=== PATIENT | female | born 1980 | race Caucasian/White ===

== ENCOUNTER → 2016-11-21 | Outpatient (CLI) | payer OTHER | LOC: HPND 11:14 | PROVIDERS: ATTEND Obstetrics & Gynecology | DX: O09.522 Supervision of elderly multigravida, second trimester (principal); O28.3 Abnormal ultrasonic finding on antenatal screening of mother; O35.1XX0 Maternal care for (suspected) chromosomal abnormality in fetus, not applicable or unspecified; O35.8XX0 Maternal care for other (suspected) fetal abnormality and damage, not applicable or unspecified; Z3A.19 19 weeks gestation of pregnancy | CPT/HCPCS: 76811 ==

== ENCOUNTER 2017-02-08 16:57 | Emergency (ER) | payer OTHER ==
[~2017-02-08] VITALS: Ht 162.6 cm; Wt 102.1 kg
--- NOTE | 2017-02-08 18:07 | MB ---
cc: ORA COX MD DATE OF CONSULTATION 02/08/2017 at 5:40 p.m. LABOR AND DELIVERY CONSULTATION HISTORY The patient is a 36-year-old white female para 2-1-1-3 with EDC of 04/14/17. She was in the bathroom with her youngest child and suffered a fall, landed on both knees. Her left side hit the but and her right arm hit the tub. She had no abdominal pain, no bleeding. No discharge. No change in movement. She called me around 3:30 right about the time it happened, was advised to come in for monitoring. PHYSICAL EXAMINATION VITAL SIGNS: Her vital signs were stable. heart tracing is normal. DIRECTED EXAMINATION: The abdomen is gravid, nontender. Her cervix was long, thick and closed. EXTREMITIES: The right forearm has a mild bruise with full range of motion. Both knees show a full range of motion. No apparent injury. PLAN She will be discharged home after 1 hour of stable monitoring. She may use ice packs to her abrasion. Has had tetanus shot. Use Tylenol for pain relief. Should she have leakage of fluid, bleeding, decreased movement come back for monitoring. Ora Cox MD JAW/EO /5:44 PM /5:50 PM
== END 2017-02-08 18:27 | disposition home or self-care (01) ==
LOC: HOBED 16:57
DX: S50.11XA Contusion of right forearm, initial encounter (principal); W18.00XA Striking against unspecified object with subsequent fall, initial encounter
CPT/HCPCS: 99283

== ENCOUNTER → 2017-02-13 | Outpatient (CLI) | payer OTHER | LOC: HPND 10:13 | PROVIDERS: ATTEND Obstetrics & Gynecology | DX: O09.522 Supervision of elderly multigravida, second trimester (principal); O99.282 Endocrine, nutritional and metabolic diseases complicating pregnancy, second trimester | CPT/HCPCS: 76816 ==

== ENCOUNTER → 2017-03-25 | Outpatient (CLI) | payer OTHER | LOC: HPND 10:14 | PROVIDERS: ATTEND Obstetrics & Gynecology | DX: O09.523 Supervision of elderly multigravida, third trimester (principal); O99.283 Endocrine, nutritional and metabolic diseases complicating pregnancy, third trimester | CPT/HCPCS: 76816 ==

== ENCOUNTER 2017-04-08 15:53 | Emergency (ER) | payer OTHER ==
--- NOTE | 2017-04-08 16:44 | PD ---
HPI Chief Complaint Patient complains of a gush of fluid per vagina today after lifting her child in the car seat Date Seen: Apr 08, 2017 Time Seen: 16:30 Travel History International Travel<30 Days: No Contact w/Intl Traveler<30Days: No Known Affected Area: No History of Present Illness HPI This patient is a 37-year-old white female A1 is a patient of Dr. wakefield presents planning of leakage of fluid per vagina today. Patient states she was getting her child and out of the car seat in the current that she had a big gush of fluid per vagina. After that she went in the house change closed and Dry underwear and clothes on and those clothes did not get wet; after that though she states that she's can still consistent feeling a small dripping small amount of leakage still. Denies vaginal bleeding, baby is active, heart rate tracing is reactive, there are no contractions. Her amnio sure is negative 2 here on OB ED Weeks Gestation: 39 Para: 3 : 5 Last Menstrual Period: Apr 08, 2017 Miscarriage: 1 History Past Medical History Narrative Medical hypothyroidism is on Synthroid Obstetric History Obstetric History 3 vaginal deliveries; one early miscarriage Social History Alcohol Use: No Tobacco Use: No Substance Abuse: No Allergies-Medications (Allergen,Severity, Reaction): Coded Allergies: Penicillins (Verified Allergy, Severe, hives, 02/08/17) Sulfa (Sulfonamide Antibiotics) (Verified Allergy, Severe, hives, 02/08/17) ibuprofen (Verified Allergy, Severe, swelling, 02/08/17) Review of Systems General / Constitutional: No: Fever, Weight Gain, Chills, Other Eyes: No: Diploplia, Blurred Vision, Visual changes, Pain, Photophobia HENT: No: Headaches, Vertigo, Lightheadedness Cardiovascular: No: Irregular Rhythm, Chest Pain or Discomfort, Palpitations, Tachycardia, Syncope, Varicosities, Edema, Cyanosis Respiratory: No: Cough, Short of Breath, Other Gastrointestinal: No: Nausea, Vomiting, Diarrhea Genitourinary: No: Decreased Urinary Output, Oliguria Musculoskeletal: No: Limited ROM, Weakness, Cramping, Edema, Pain Skin: No Rash, No Itching, No Dryness, No Lumps, No Change in Pigmentation, No Change in Nails, No Alopecia, No Lesions Neurologic: No: Weakness, Dizziness, Syncope, Focal Abnormalities, Coordination Problem, Headache, Slurred Speech, Seizures Psychiatric: No: Depression, Suicidal Ideations, Homicidal Ideation Endocrine: No: Heat Intolerance, Cold Intolerance, Polydipsia, Polyuria, Other Physical Exam Narrative GENERAL: Well-nourished, well-developed patient. SKIN: Warm and dry. HEAD: Normocephalic and atraumatic. EYES: No scleral icterus. No injection or drainage. ENT: No nasal drainage noted. Mucous membranes pink. Airway patent. NECK: Supple, trachea midline. No JVD. CARDIOVASCULAR: Regular rate and rhythm without murmurs, gallops, or rubs. RESPIRATORY: Breath sounds equal bilaterally. No accessory muscle use. BREASTS: Bilateral exam showed no masses , no retractions, no nipple discharge. ABDOMEN/GI: Abdomen soft, non-tender, bowel sounds present, no rebound, no guarding Gravid to [39-] weeks size Fundal Height: [39-] GENITOURINARY: External Genitalia: intact and normal in appearance Amnio sure repeated and was negative, the re is no obvious leakage of fluid per vagina or near the labia or vulva. Cervix: [Posterior-] Speculum exam done--no leakage of fluid through the cervix no pooling in the vagina there is a moderate amount of yellow discharge at the cervical os. Dilatation: -Closed to fingertip] Effacement: [-] Thick Station: [-3] Presentation: [vtx-] Membranes: [intact amnio sure negative 2 speculum exam negative for fluid] Uterine Contractions: [-] Occasional FHT's: Category: [-1] Baseline: [-133] Reactive: [yes-] Variability: [-mod] Decels: [0-] EXTREMITIES: No cyanosis or edema. BACK: Nontender without obvious deformity. No CVA tenderness. NEUROLOGICAL: Awake and alert. Motor and sensory grossly within normal limits. Five out of 5 muscle strength in all muscle groups. Normal speech. Data Data Labs Amnio sure negative 2 MDM Interpretation(s) Patient is 37-year-old white female at 39 weeks presents of loss of fluid today. She noticed a gush of fluid which try to get her child car in the midline car seat. Since that time she changed clothes and put on dry clothes and they did not get significantly wet after that. Amnio sure is negative 2 here ;; her speculum exam was negative for any fluid pooling dark appearing in the vagina. On speculum exam There is yellow discharge in the cervical os and fornix CONSISTENT with intact membranes. Her NST is reactive contractions seen Plan Plan to discharge home today for her to observe for any further leakage bleeding or pain. Diagnosis Diagnosis: Primary Impression: No leakage of amniotic fluid into vagina Additional Impression: 39 weeks gestation of Disposition: 01 DISCHARGE HOME Condition: Stable Luke Vallejo II, MD Apr 08, 2017 16:44
== END 2017-04-08 16:52 | disposition home or self-care (01) ==
LOC: HOBED 15:53
DX: Z03.71 Encounter for suspected problem with amniotic cavity and membrane ruled out (principal); O99.283 Endocrine, nutritional and metabolic diseases complicating pregnancy, third trimester; E03.9 Hypothyroidism, unspecified; Z3A.39 39 weeks gestation of pregnancy
CPT/HCPCS: 84112; 99283

== ENCOUNTER 2017-04-10 01:44 | Inpatient (IN) | payer OTHER ==
[2017-04-10] VITALS (37 sets, daily range): BP systolic 95–170; BP diastolic 56–92; PULSE 76–99; RESP 14–20; TEMP 97.7–98.2; O2SAT 100
[~2017-04-10] VITALS: Ht 162.6 cm; Wt 106.6 kg
[2017-04-10] MEDS ORDERED: LACTATED RINGER'S 1000 ML INJ 1,000 ML IV PRN (02:29)
[2017-04-10] MEDS ORDERED: LACTATED RINGER'S 1000 ML INJ 1,000 ML IV SCH (02:29)
--- NOTE | 2017-04-10 02:29 | PD ---
HPI Chief Complaint Rupture membranes at 8 PM with the onset of contractions around midnight Date Seen: Apr 10, 2017 Time Seen: 02:24 Travel History International Travel<30 Days: No Contact w/Intl Traveler<30Days: No Known Affected Area: No History of Present Illness HPI 37-year-old who is at 39 weeks 4 days comes in complaining of rupture membranes clear fluid around 8 PM last night with the onset of contractions around midnight which brought her into the hospital patient denies any complications except for hypothyroidism with for which she is taking Synthroid. She has had 2 prior spontaneous vaginal deliveries last delivery was complicated by a difficult placement of an epidural. She is group B strep negative Weeks Gestation: 39 Para: 3 : 5 Miscarriage: 1 History Past Medical History Medical History: Denies Significant Hx Obstetric History Obstetric History 3 prior spontaneous vaginal deliveries and 1 prior spontaneous Past Surgical History Surgical History: No Previous Surgery Family History Family History: Negative Social History Alcohol Use: No Tobacco Use: No Substance Abuse: No Allergies-Medications (Allergen,Severity, Reaction): Coded Allergies: Penicillins (Verified Allergy, Severe, hives, 02/08/17) Sulfa (Sulfonamide Antibiotics) (Verified Allergy, Severe, hives, 02/08/17) ibuprofen (Verified Allergy, Severe, swelling, 02/08/17) Review of Systems Except as stated in HPI: all other systems reviewed are Neg Physical Exam Narrative GENERAL: Well-nourished, well-developed patient. SKIN: Warm and dry. HEAD: Normocephalic and atraumatic. EYES: No scleral icterus. No injection or drainage. ENT: No nasal drainage noted. Mucous membranes pink. Airway patent. NECK: Supple, trachea midline. No JVD. CARDIOVASCULAR: Regular rate and rhythm without murmurs, gallops, or rubs. RESPIRATORY: Breath sounds equal bilaterally. No accessory muscle use. ABDOMEN/GI: Abdomen soft, non-tender, bowel sounds present, no rebound, no guarding Gravid to [-38] weeks size Fundal Height: [-] GENITOURINARY: External Genitalia: intact and normal in appearance BUS glands: [Normal] Cervix: [-Mid position] Dilatation: [3-4 cm-] Effacement: [-70% effaced] Station: [--2] Presentation: [-Vertex] Membranes: [ruptured grossly with clear fluids Uterine Contractions: [-Irregular every 4-6] FHT's: Category: [1-] Baseline: [140-] Reactive: [-Moderate] Variability: [-Moderate] Decels: [Absent-] EXTREMITIES: No cyanosis or edema. BACK: Nontender without obvious deformity. No CVA tenderness. NEUROLOGICAL: Awake and alert. Motor and sensory grossly within normal limits. Five out of 5 muscle strength in all muscle groups. Normal speech. Data Data Vital Signs Reviewed: Yes Orders Orders Ob (2e) Additional Admit Info (04/10/17 02:21) Group B Strep: Negative MDM Medical Record Reviewed: Yes Plan 37-year-old here with spontaneous rupture membranes and the onset of early labor Group B strep negative Hypothyroidism on medication Diagnosis Diagnosis: Primary Impression: 39 weeks gestation of Additional Impressions: Rupture of membranes with clear amniotic fluid Hypothyroidism affecting in third trimester Renetta Garcia MD Apr 10, 2017 02:29
[2017-04-10] MEDS ORDERED: CITRIC ACID-SODIUM CITRATE LIQ 30 ML UDC PO SCH (02:30)
[2017-04-10] MEDS ORDERED: LIDOCAINE HCL 1% 50 ML VIAL INFIL PRN (02:30)
[2017-04-10] MEDS ORDERED: ONDANSETRON HCL 4 MG/2 ML VIAL IV PUSH PRN (02:30)
[2017-04-10] MEDS: OXYTOCIN 30 UNITS-500ML PREMIX 500 ML IV ONE ×2 (02:30→04:48)
[2017-04-10] MEDS ORDERED: SODIUM CHLORID 0.9% 500 ML INJ 500 ML IV PRN (02:30)
[2017-04-10] MEDS ORDERED: MINERAL OIL 10 ML VIAL TOPICAL PRN (02:30)
[2017-04-10] MEDS ORDERED: LIDOCAINE HCL 1% 50 ML VIAL I-DERMAL PRN (02:30)
[2017-04-10] MEDS ORDERED: SYNT25TA PO (02:41)
[2017-04-10] MEDS ORDERED: FERR325T18 PO (02:41)
[2017-04-10] MEDS ORDERED: Prenatal Vitamin PO (02:41)
[2017-04-10] MEDS ORDERED: OXYTOCIN 30 UNITS-500ML PREMIX 500 ML IV SCH ×2 (02:45→07:45)
[2017-04-10] MEDS ORDERED: SODIUM CHLOR 0.9% 1000 ML INJ 1,000 ML IV PRN (02:49)
[2017-04-10 03:09] LABS: AUTOMATED NEUTROPHIL # 9.9 TH/MM3 (1.8-7.7); BASOPHIL % 0.4 % (0.0-2.0); EOSINOPHIL % 0.3 % (0.0-4.0); HEMATOCRIT 39.2 % (35.0-46.0); HEMO FLAGS DIFF FINAL; LYMPH % 11.6 % (9.0-44.0); LYMPHOCYTE # 1.4 TH/MM3 (1.0-4.8); MEAN CELL VOLUME 84.6 FL (80.0-100.0); MEAN CORPUSCULAR HEMOGLOBIN 28.7 PG (27.0-34.0); MEAN CORPUSCULAR HGB CONC 33.9 % (32.0-36.0); MONO % 4.8 % (0.0-8.0); NEUT % 82.9 % (16.0-70.0); PLATELET COUNT 136 TH/MM3 (150-450); RED BLOOD COUNT 4.64 MIL/MM3 (4.00-5.30); RED CELL DISTRIBUTION WIDTH 15.2 % (11.6-17.2); WHITE BLOOD COUNT 11.9 TH/MM3 (4.0-11.0)
[2017-04-10] MEDS ORDERED: ePHEDrine/NS 25 MG/5 ML SYR ONE (03:09)
[2017-04-10] MEDS ORDERED: fentaNYL 2MCG-BUPIV 0.125% INJ 100 ML ONE (03:09)
[2017-04-10] MEDS ORDERED: NO SYSTEM NARCOTICS PRN (03:40)
[2017-04-10] MEDS ORDERED: fentaNYL 2MCG-BUPIV 0.125% 100 ML EPIDURAL SCH (03:40)
[2017-04-10] MEDS ORDERED: DO NOT ADMINISTER ANTICOAGULANTS PRN (03:40)
[2017-04-10] MEDS ORDERED: ePHEDrine/NS 25 MG/5 ML SYR IV PUSH PRN (04:00)
--- NOTE | 2017-04-10 05:24 | MH ---
cc: ORA COX DATE OF ADMISSION: 04/10/2017 TIME OF ADMISSION: 03:40 a.m. ADMISSION DIAGNOSES 1. Term . 2. Spontaneous rupture of membranes. 3. Advanced maternal age. HISTORY OF PRESENT ILLNESS The patient is a 37-year-old white female, para 2-1-1-2, with LMP of 07/08/2016, EDC of 04/14/2017. She has been followed by me for her care. Her care course has been benign. She had normal first TM screen and normal self radiating testing. Ultrasound has shown appropriate growth. PAST MEDICAL HISTORY PREVIOUS SURGERY 1. In 2007 she had laparoscopy with a left oophorectomy for a dermoid. 2. Breast biopsy at age 16, benign. ALLERGIES PENICILLIN. SULFA. IBUPROFEN. OB HISTORY Three vaginal deliveries, the largest weighing 9 pounds, 2 ounces. She had one spontaneous . MEDICAL ILLNESS Hypothyroid since 2004 on medications. MEDICATIONS 1. Vitamins. 2. Iron. 3. Thyroid. SOCIAL HISTORY She is . She is an R.N. Alcohol, tobacco and drugs are none. FAMILY HISTORY Noncontributory. PHYSICAL EXAMINATION GENERAL: A well-nourished, well-developed white female. VITAL SIGNS: Stable. HEENT: Exam is normal. CHEST: Clear. HEART: Regular rate. ABDOMEN: Gravid. EFW of 3800 grams. PELVIC: Cervix is 2-3, thick, posterior, minus 1, ruptured. EXTREMITIES: Normal. ASSESSMENT As above. PLAN She is now admitted for delivery. She is GBS-negative. She has epidural in place and will require Pitocin augmentation as contractions have slowed. MD TIFFANY Wetzel/VIVIANE /3:44 AM /5:07 AM
[2017-04-10] MEDS ORDERED: ZOLPIDEM TARTRATE 5 MG TAB PO PRN (07:45)
[2017-04-10] MEDS ORDERED: ALUMINUM/MAGNESIUM/SIMETH 30 ML CUP PO PRN (07:45)
[2017-04-10] MEDS ORDERED: BENZOCAINE 20% TOPICAL SPRAY 60 ML CAN TOPICAL PRN (07:45)
[2017-04-10] MEDS ORDERED: SODIUM CHLORIDE 0.9% FLUSH 10 ML FLUSH IV FLUSH PRN (07:45)
[2017-04-10] MEDS ORDERED: ACETAMINOPHEN 325 MG TAB PO PRN (07:45)
[2017-04-10] MEDS ORDERED: WITCH HAZEL 50%/GLYCERIN 12.5% 40 PAD JAR TOPICAL PRN (07:45)
[2017-04-10] MEDS ORDERED: ONDANSETRON ODT 4 MG TAB PO PRN (07:45)
[2017-04-10] MEDS: oxyCODONE/ACETAMINOPHEN 5 MG/325 MG TAB PO PRN ×4 (08:55→21:18)
[2017-04-10] MEDS ORDERED: SODIUM CHLORIDE 0.9% FLUSH 10 ML FLUSH IV FLUSH SCH (09:00)
[2017-04-10] MEDS ORDERED: DIPHTH/TETANUS/ACEL PERTUSSIS (BOOSTER) 0.5 ML VIAL/PFS IM ONE (16:00)
[2017-04-10] MEDS ORDERED: MEASLES, MUMPS, RUBELLA VACCINE 0.5 ML VIAL SQ ONE (16:00)
[2017-04-10] MEDS: DOCUSATE SODIUM 50 MG/SENNA 8.6 MG TAB PO PRN (16:44)
[2017-04-11] MEDS: oxyCODONE/ACETAMINOPHEN 5 MG/325 MG TAB PO PRN ×3 (01:33→10:20)
[2017-04-11] MEDS: DOCUSATE SODIUM 50 MG/SENNA 8.6 MG TAB PO PRN (06:42)
[2017-04-11 07:50] VITALS: BP 118/72; PULSE 77; RESP 18; TEMP 98; O2SAT 98
[2017-04-11] MEDS ORDERED: OXYC1TAB63 PO (07:54)
--- NOTE | 2017-04-11 07:54 | HHI.DCPOC ---
Discharge Care Plan Report Symptoms to Your Doctor -Temperature above 100.5 degrees -Redness, of incision or excessive or foul smelling drainage -Unusual pain or calf pain -Increased vaginal bleeding -Painful or difficulty urinating -Feelings of extreme sadness or anxiety after 2 weeks Goals to Promote Your Health * To prevent worsening of your condition and complications * To maintain your health at the optimal level Directions to Meet Your Goals Take your medications as prescribed Follow your dietary instruction Follow activity as directed Ensure plenty of rest for recovery Drink fluids for hydration Keep your appointments as scheduled Take your immunizations and boosters as scheduled If your symptoms worsen call your PCP, if no PCP go to Urgent Care Center or Emergency Room Smoking is Dangerous to Your Health. Avoid second hand smoke Call the 24-hour crisis hotline for domestic abuse at Faisal Nair MD Apr 11, 2017 07:54
[2017-04-11] MEDS ORDERED: LEVOTHYROXINE SODIUM 25 MCG TAB PO ONE (08:30)
[2017-04-11 09:28] LABS: AUTOMATED NEUTROPHIL # 8.8 TH/MM3 (1.8-7.7); BASOPHIL % 0.2 % (0.0-2.0); EOSINOPHIL # 0.1 TH/MM3 (0-0.4); EOSINOPHIL % 0.9 % (0.0-4.0); HEMATOCRIT 35.8 % (35.0-46.0); HEMO FLAGS DIFF FINAL; LYMPH % 13.4 % (9.0-44.0); LYMPHOCYTE # 1.5 TH/MM3 (1.0-4.8); MEAN CELL VOLUME 85.2 FL (80.0-100.0); MEAN CORPUSCULAR HEMOGLOBIN 29.5 PG (27.0-34.0); MEAN CORPUSCULAR HGB CONC 34.6 % (32.0-36.0); MONO % 4.5 % (0.0-8.0); PLATELET COUNT 117 TH/MM3 (150-450); RED BLOOD COUNT 4.21 MIL/MM3 (4.00-5.30); WHITE BLOOD COUNT 10.8 TH/MM3 (4.0-11.0)
[2017-04-11] MEDS ORDERED: INFLUENZA VIRUS VACCINE (QUADRIVALENT) 0.5 ML SYR IM ONE (10:00)
[2017-04-11] MEDS ORDERED: PNEUMOCOCCAL POLYVALENT INJ 25 MCG/0.5 ML SYR IM ONE (10:00)
--- NOTE | 2017-04-11 14:06 | MD ---
cc: ORA COX ADMISSION DATE: 04/10/2017 DISCHARGE DATE: [facility] Visit Search.Discharge Date DISCHARGE DATE: 04/11/2017 ADMISSION DIAGNOSES 1. Term . 2. Advanced maternal age. 3. Early labor. DISCHARGE DIAGNOSES 1. Term . 2. Advanced maternal age. 3. Early labor. 4. Delivered HISTORY OF PRESENT ILLNESS The patient is a 37-year-old white female, para 2-1-1-3 with an LMP of 07/08/2016, EDC of 04/14/2017. Her preop course was benign. Her first TM screen and testing were normal. Her labs include Rh-positive, VDRL nonreactive, rubella immune, rubeola immune, HAA negative, Pap negative, glucose screen was normal. CMV negative. Strep culture negative. HOSPITAL COURSE She had spontaneous rupture of membranes at 08:00 p.m. on the night of 04/09/2017, admitted on the morning of 04/10/2017, received epidural anesthesia, Pitocin augmentation and progressed to a spontaneous vaginal delivery over a second-degree midline tear with epidural anesthesia and repair with chromic suture. did well, was discharged home in excellent condition on 04/11/2017, advised NPV, light activity, no driving until free of pain, to return to see me in 6 weeks. The baby had a small chordae. Physician recommended holding circumcision until cleared by the Pediatric Urologist. The patient will contact the office to schedule if the baby is cleared. DISCHARGE MEDICATIONS She was given a script for Percocet 5, one p.o. q.4 hours p.r.n. pain #30, to take her vitamins, iron pills and Synthroid daily. MD TIFFANY Wetzel/VIVIANE /7:56 AM /1:42 PM
[2017-04-12] MEDS ORDERED: LEVOTHYROXINE SODIUM 25 MCG TAB PO SCH (07:30)
== END 2017-04-11 17:14 | disposition home or self-care (01) | DRG 775 ==
LOC: HOBED 01:44 → H2EA 02:21 → H1EA 09:10
PROVIDERS: ADMIT Obstetrics & Gynecology; ATTEND Obstetrics & Gynecology
PROC: 10E0XZZ Delivery of Products of Conception, External Approach (ICD-10-PCS; principal; 2017-04-10)
PROC: 0KQM0ZZ Repair Perineum Muscle, Open Approach (ICD-10-PCS; 2017-04-10)
DX: O99.284 Endocrine, nutritional and metabolic diseases complicating childbirth (principal); E03.9 Hypothyroidism, unspecified; O70.1 Second degree perineal laceration during delivery; Z3A.39 39 weeks gestation of pregnancy; Z37.0 Single live birth; Z88.0 Allergy status to penicillin; Z88.2 Allergy status to sulfonamides; Z88.6 Allergy status to analgesic agent
CPT/HCPCS: 59025; 80307; 85025; 86900; 86901; J2590; J7120

== ENCOUNTER 2017-04-17 17:30 | Emergency (ER) | payer OTHER ==
[~2017-04-17 17:30] MED LIST: FERR325T18 PO; OXYC1TAB63 PO; Prenatal Vitamin PO; SYNT25TA PO
--- NOTE | 2017-04-17 18:17 | PD ---
HPI Chief Complaint Elevated blood pressure at home Date Seen: Apr 17, 2017 Time Seen: 18:10 Travel History International Travel<30 Days: No Contact w/Intl Traveler<30Days: No Known Affected Area: No History of Present Illness HPI Patient is a 37-year-old white female para 4 just delivered a week ago with Dr. nair her OB doctor and she presents today for evaluation of elevated blood pressure she noticed at home. He says several pressures, in the 140 over 90s range she states is mainly high when she is up and around and very active with her other 3 children and the . Patient had no blood pressure issues while she was call or with any other pregnancies ;; she usually runs a low blood pressure in the 110/60 range. On OB ED up pressure 136/89 ,118/80 Para: 4 : 4 History Obstetric History Obstetric History 4 vaginal deliveries last one a week ago with no history of hypertension during any of the pregnancies with last Social History Alcohol Use: No Tobacco Use: No Substance Abuse: No Allergies-Medications (Allergen,Severity, Reaction): Coded Allergies: Penicillins (Verified Allergy, Severe, hives, 02/08/17) Sulfa (Sulfonamide Antibiotics) (Verified Allergy, Severe, hives, 02/08/17) ibuprofen (Verified Allergy, Severe, swelling, 02/08/17) Home Meds Active Scripts Oxycodone HCl/Acetaminophen (Oxycodone-Acetaminophen 5-325) 5 Mg-325 Mg Tablet, 1 TAB PO Q4H Y for PAIN SCALE 3 TO 5, #30 CAPLET 0 Refills Prov:Faisal Nair MD 04/11/17 Reported Medications Levothyroxine (Synthroid) 25 Mcg Tab, 25 MCG PO DAILY for Thyroid, #30 TAB 0 Refills 04/10/17 Ferrous Sulfate (Ferrous Sulfate) 325 Mg (65 Mg Iron) Tablet, 325 MG PO DAILY for Nutritional Supplement, #30 TAB 0 Refills 04/10/17 [ Vitamin] No Conflict Check, 1 TAB PO DAILY 04/10/17 Review of Systems General / Constitutional: No: Fever, Weight Gain, Chills, Other Eyes: No: Diploplia, Blurred Vision, Visual changes, Pain, Photophobia HENT: Headaches Cardiovascular: No: Irregular Rhythm, Chest Pain or Discomfort, Palpitations, Tachycardia, Syncope, Varicosities, Edema, Cyanosis Respiratory: No: Cough, Short of Breath, Other Gastrointestinal: No: Nausea, Vomiting, Diarrhea Genitourinary: No: Decreased Urinary Output, Oliguria Musculoskeletal: No: Limited ROM, Weakness, Cramping, Edema, Pain Skin: No Rash, No Itching, No Dryness, No Lumps, No Change in Pigmentation, No Change in Nails, No Alopecia, No Lesions Neurologic: No: Weakness, Dizziness, Syncope, Focal Abnormalities, Coordination Problem, Headache, Slurred Speech, Seizures Psychiatric: No: Depression, Suicidal Ideations, Homicidal Ideation Endocrine: No: Heat Intolerance, Cold Intolerance, Polydipsia, Polyuria, Other Physical Exam Narrative GENERAL: Well-nourished, well-developed patient. SKIN: Warm and dry. HEAD: Normocephalic and atraumatic. EYES: No scleral icterus. No injection or drainage. ENT: No nasal drainage noted. Mucous membranes pink. Airway patent. NECK: Supple, trachea midline. No JVD. CARDIOVASCULAR: Regular rate and rhythm without murmurs, gallops, or rubs. RESPIRATORY: Breath sounds equal bilaterally. No accessory muscle use. BREASTS: Bilateral exam showed no masses , no retractions, no nipple discharge. ABDOMEN/GI: Abdomen soft, non-tender, bowel sounds present, no rebound, no guarding EXTREMITIES: No cyanosis or edema. BACK: Nontender without obvious deformity. No CVA tenderness. NEUROLOGICAL: Awake and alert. Motor and sensory grossly within normal limits. Five out of 5 muscle strength in all muscle groups. Normal speech. Data Data Orders Orders Cbc No Diff, Includes Plts (04/17/17 17:54) Comprehensive Metabolic Panel (04/17/17 17:54) Uric Acid (04/17/17 17:54) Urinalysis - C+S If Indicated (04/17/17 17:54) Labs PIH lab WNL , urine neg for protein MDM Interpretation(s) Patient is 37-year-old white female para 4 who is a week out from a vaginal delivery by Dr. nair presents now with elevated blood pressures at home ., she has no history of hypertension during or between pregnancies and has never been medicated. Plan Doing well , BPs all normal , lab WNL , Urine neg prot. she needs bedrest at home as much as she can , low Sodium diet , F/U with Dr Nair Diagnosis Diagnosis: Primary Impression: Hypertension, condition or complication Disposition: 01 DISCHARGE HOME Condition: Stable Luke Vallejo II, MD Apr 17, 2017 18:17
[2017-04-17 18:27] LABS: HEMATOCRIT 40.8 % (35.0-46.0); MEAN CELL VOLUME 86.5 FL (80.0-100.0); MEAN CORPUSCULAR HEMOGLOBIN 29.4 PG (27.0-34.0); MEAN CORPUSCULAR HGB CONC 33.9 % (32.0-36.0); PLATELET COUNT 193 TH/MM3 (150-450); RED BLOOD COUNT 4.71 MIL/MM3 (4.00-5.30); REVIEW FLAG FINAL; WHITE BLOOD COUNT 8.9 TH/MM3 (4.0-11.0)
[2017-04-17 19:07] LABS: ALT (GPT) 62 U/L (10-53); ANION GAP 9 MEQ/L (5-15); AST (GOT) 28 U/L (15-37); BICARBONATE 24.5 MEQ/L (21.0-32.0); BLOOD UREA NITROGEN 17 MG/DL (7-18); CHLORIDE 105 MEQ/L (98-107); GLOMERULAR FILTRATION RATE 79 ML/MIN (>89); POTASSIUM 3.8 MEQ/L (3.5-5.1); SODIUM (NA) 138 MEQ/L (136-145); URIC ACID 8.1 MG/DL (2.6-6.0)
[2017-04-17 19:10] LABS: ALKALINE PHOSPHATASE 108 U/L (45-117); TOTAL BILIRUBIN ADULT 0.2 MG/DL (0.2-1.0)
[2017-04-17 21:50] LABS: BLOOD, URINE NEG (NEG); GLUCOSE,URINE NEG (NEG); KETONE, URINE NEG (NEG); MUCUS URINE FEW /lpf (OCC); NITRITE,URINE NEG (NEG); PH, URINE 6.5 (5.0-8.5); SQUAMOUS EPITHELIAL CELL URINE <1 /hpf (0-5); URINE COLOR YELLOW (YELLW/STRAW)
[2017-04-17 21:51] LABS: COMMENT (UR) CATH-CULT NOT IND; CULTURE IF INDICATED CATH CULTURE NOT IND
== END 2017-04-17 19:56 | disposition home or self-care (01) ==
LOC: HOBED 17:30
DX: O16.5 Unspecified maternal hypertension, complicating the puerperium (principal)
CPT/HCPCS: 36415; 80053; 81001; 84550; 85027; 99283